=== PATIENT | male | born 1975 | race African-American/Black ===

== ENCOUNTER 2018-08-30 20:04 | Emergency (ER) | payer OTHER ==
[~2018-08-30] VITALS: Ht 172.7 cm; Wt 172.4 kg
[2018-08-30 20:19] VITALS: BP 146/89
[2018-08-30] MEDS ORDERED: Methocarbamol 750mg tab ORAL ONE (20:30)
[2018-08-30] MEDS ORDERED: Ketorolac 30mg Inj IM ONE (20:30)
[2018-08-30] MEDS ORDERED: ROBAXIN-750750 MG PO (20:55)
[2018-08-30] MEDS ORDERED: LIDODERM700 M1 TOPIC (20:55)
[2018-08-30] MEDS ORDERED: IBUPROFEN600 MG ORAL (20:55)
[2018-08-30 21:06] VITALS: BP 146/89
--- NOTE | 2018-08-30 21:56 | Emergency Room Report ---
History of Present Illness General Chief Complaint: Neck Pain Source: Patient Present Illness HPI 43-year-old male presents ED for evaluation. Complaining of left-sided neck pain. Woke up with the pain 2 days ago. States his neck feels stiff. Pain is throbbing, 8 out of 10, nonradiating. Denies headaches or photophobia. Denies blurry vision. Fevers or chills. Other aggravating relieving factors. Denies any other associated symptoms Allergies: Coded Allergies: No Known Allergies (Unverified , 08/30/18) Patient History Past Medical History: HTN Past Surgical History: none Pertinent Family History: none Social History: Denies: smoking, alcohol use, drug use Immunizations: UTD Reviewed Nursing Documentation: PMH: Agreed; PSxH: Agreed Nursing Documentation-PMH Hx Hypertension: Yes Review of Systems All Other Systems: negative except mentioned in HPI Physical Exam Vital Signs Date Time Temp Pulse Resp B/P (MAP) Pulse Ox O2 Delivery O2 Flow Rate FiO2 08/30/18 20:08 98.4 92 18 146/89 96 Room Air Sp02 EP Interpretation: reviewed, normal General Appearance: no apparent distress, alert, GCS 15, non-toxic, obese Head: normocephalic, atraumatic Eyes: bilateral eye normal inspection, bilateral eye PERRL ENT: hearing grossly normal, normal pharynx, no angioedema, normal voice Neck: full range of motion, supple, no meningismus, no bony tend, supple/symm/ no masses, tender lateral Respiratory: chest non-tender, lungs clear, normal breath sounds, speaking full sentences Cardiovascular #1: regular rate, rhythm, no edema Cardiovascular #2: 2+ carotid (R), 2+ carotid (L), 2+ radial (R), 2+ radial (L) , 2+ dorsalis pedis (R), 2+ dorsalis pedis (L) Gastrointestinal: normal bowel sounds, non tender, soft, non-distended, no guarding, no rebound Rectal: deferred Genitourinary: normal inspection, no CVA tenderness Musculoskeletal: back normal, gait/station normal, normal range of motion, non- tender Neurologic: alert, oriented x3, responsive, motor strength/tone normal, sensory intact, speech normal Psychiatric: judgement/insight normal, memory normal, mood/affect normal, no suicidal/homicidal ideation Reflexes: 3+ bicep (R), 3+ bicep (L), 3+ tricep (R), 3+ tricep (L), 3+ knee (R) , 3+ knee (L) Skin: normal color, no rash, warm/dry, well hydrated Lymphatic: no adenopathy Medical Decision Making Diagnostic Impression: Primary Impression: Neck strain Qualified Codes: S16.1XXA - Strain of muscle, fascia and tendon at neck level , initial encounter ER Course Hospital Course 43-year-old male presents ED complaining of left-sided neck pain Differential diagnoses include: neck strain, shoulder strain, dislocation/ fracture Clinical course Patient placed on stretcher. After initial history and physical exam reveals middle-aged male in no acute distress. On exam there is no midline neck tenderness or shoulder tenderness. There is pain over the trapezius. Gayla exam unremarkable. Pain is muscular. No imaging required. I ordered Toradol, Robaxin, Lidoderm in ED. Upon reassessment pain is improved Discussed findings with patient. Safe for discharge close outpatient follow- up. Signs of PMD. We'll provide referrals Diagnosis - neck strain Stable and discharged to home with prescription for Motrin, Robaxin, Lidoderm. Followup with PMD/ortho. Return to ED if symptoms recur or worsen Last Vital Signs Date Time Temp Pulse Resp B/P (MAP) Pulse Ox O2 Delivery O2 Flow Rate FiO2 08/30/18 21:06 98.4 18 146/89 96 Room Air 08/30/18 20:19 78 Status: improved Disposition: HOME, SELF-CARE Condition: Stable Scripts Lidocaine (Lidoderm) 1 Each Adh..patch 1 PATCH TOPIC DAILY, #7 PATCH 0 Refills Patch(es) may remain in place for up to 12 hours in any 24-hour period. Prov: Mo Dudley MD 08/30/18 Methocarbamol* (ROBAXIN-750*) 750 Mg Tablet 750 MG PO TID, #21 TAB 0 Refills Prov: Mo Dudley MD 08/30/18 Ibuprofen* (MOTRIN*) 600 Mg Tablet 600 MG ORAL Q8H PRN for For Pain, #30 TAB 0 Refills Prov: Mo Dudley MD 08/30/18 Referrals: NOT CHOSEN IPA/,REFERRING (PCP) [facility] Open 24 hour /7 days a week by Appointment Only [address] [facility] [address] Patient Instructions: Cervical Strain and Sprain With Rehab[facility] Mo Dudley MD Aug 30, 2018 21:56
== END 2018-08-30 21:07 | disposition home or self-care (01) ==
LOC: EMR 20:20
DX: S16.1XXA Strain of muscle, fascia and tendon at neck level, initial encounter (principal); X58.XXXA Exposure to other specified factors, initial encounter; Y92.9 Unspecified place or not applicable; I10 Essential (primary) hypertension
CPT/HCPCS: 96372; 99283; J1885

== ENCOUNTER 2019-02-09 15:19 | Emergency (ER) | payer OTHER ==
[~2019-02-09] VITALS: Ht 172.7 cm; Wt 185.5 kg
[~2019-02-09 15:19] MED LIST: IBUPROFEN600 MG ORAL; LIDODERM700 M1 TOPIC; ROBAXIN-750750 MG PO
[2019-02-09 15:48] VITALS: BP 148/94
--- NOTE | 2019-02-09 16:12 | Emergency Room Report ---
History of Present Illness General Chief Complaint: Pain Source: Patient, Medical Record Present Illness HPI Patient presents with left-sided flank pain and a discharge the somewhat mucoid and there was blood last night when he urinated. He has had kidney stones in the past and this feels similar to that although spent a long time. He has been told that his prostate is enlarged. He has had intermittent discharges like this in the past. He was once told that this was related to his enlarged prostate and somewhat he also said that it might be related to a kidney stone. He rates the pain 5/10 fairly constant on the left-hand side. He also has a pulling in the right groin when he is straining to urinate. He denies any hernia in the past. There is no testicular pain. 2 days ago he was hit with a fever and joint pain. This improved on its own. He denies any sore throat or upper respiratory symptoms. There is no nausea, vomiting or diarrhea. He does not suspect that there is sex outside of his relationship which is been stable for years. No sore throat, chest pain, palpitations, nausea, vomiting, diarrhea, rectal pain, shortness of breath, rashes, depression, anxiety, visual changes, headache. Allergies: Coded Allergies: No Known Allergies (Unverified , 08/30/18) Patient History Past Medical History: see triage record Social History: Reports: alcohol use; Denies: smoking Social History Narrative Unemployed and lives with the mother of his 12-year-old son Reviewed Nursing Documentation: PMH: Agreed; PSxH: Agreed Nursing Documentation-PMH Hx Hypertension: Yes Review of Systems All Other Systems: negative except mentioned in HPI Physical Exam Vital Signs Date Time Temp Pulse Resp B/P (MAP) Pulse Ox O2 Delivery O2 Flow Rate FiO2 02/09/19 15:48 97.3 84 18 148/94 (112) 95 Room Air Sp02 EP Interpretation: reviewed, normal General Appearance: well appearing, no apparent distress, obese Head: normocephalic Eyes: bilateral eye normal inspection, bilateral eye PERRL, bilateral eye EOMI ENT: moist mucus membranes Neck: supple Respiratory: lungs clear, normal breath sounds Cardiovascular #1: regular rate, rhythm Cardiovascular #2: 2+ radial (R) Gastrointestinal: normal inspection, normal bowel sounds, non tender, no mass, non-distended, overweight Genitourinary: no CVA tenderness, penis normal, scrotum normal Musculoskeletal: back normal, gait/station normal, normal range of motion Neurologic: alert, oriented x3, grossly normal Psychiatric: mood/affect normal Skin: no rash Medical Decision Making Diagnostic Impression: Primary Impression: UTI (urinary tract infection) Qualified Codes: N30.00 - Acute cystitis without hematuria ER Course Patient presents with flank pain and dysuria. Differential includes pyelonephritis, renal stone, Shannen's syndrome, prostatitis, UTI, urethritis amongst others. The patient will be evaluated with labs and urinalysis. Suspicion for sexually transmitted disease is low. An ultrasound is ordered. The patient will receive IV hydration and a dose of Toradol. Urinalysis positive. White count normal. Ultrasound with no hydronephrosis but evidence of bladder wall thickening. Improved with treatment. Rocephin ordered. Discussed with patient need to see a urologist. Most likely he may need to be on Flomax in the future. Patient stable for outpatient observation and treatment. Laboratory Tests Test 02/09/19 16:12 White Blood Count 10.1 K/UL (4.8-10.8) Red Blood Count 5.46 M/UL (4.70-6.10) Hemoglobin 16.0 G/DL (14.2-18.0) Hematocrit 48.5 % (42.0-52.0) Mean Corpuscular Volume 89 FL (80-99) Mean Corpuscular Hemoglobin 29.3 PG (27.0-31.0) Mean Corpuscular Hemoglobin Concent 33.1 G/DL (32.0-36.0) Red Cell Distribution Width 12.0 % (11.6-14.8) Platelet Count 228 K/UL (150-450) Mean Platelet Volume 7.0 FL (6.5-10.1) Neutrophils (%) (Auto) 61.3 % (45.0-75.0) Lymphocytes (%) (Auto) 26.2 % (20.0-45.0) Monocytes (%) (Auto) 9.4 % (1.0-10.0) Eosinophils (%) (Auto) 2.0 % (0.0-3.0) Basophils (%) (Auto) 1.1 % (0.0-2.0) Prothrombin Time 10.0 SEC (9.30-11.50) Prothrombin Time INR 0.9 (0.9-1.1) PTT 31 SEC (23-33) Urine Color Yellow Urine Appearance Very cloudy Urine pH 7 (4.5-8.0) Urine Specific [place] 1.010 (1.005-1.035) Urine Protein 2+ (NEGATIVE) H Urine Glucose (UA) Negative (NEGATIVE) Urine Ketones 1+ (NEGATIVE) H Urine Blood 3+ (NEGATIVE) H Urine Nitrite Negative (NEGATIVE) Urine Bilirubin Negative (NEGATIVE) Urine Urobilinogen 1 MG/DL (0.0-1.0) H Urine Leukocyte Esterase 3+ (NEGATIVE) H Urine RBC 2-4 /HPF (0 - 0) H Urine WBC Tntc /HPF (0 - 0) H Urine Squamous Epithelial Cells Few /LPF (NONE/OCC) Urine Bacteria Many /HPF (NONE) H Sodium Level 140 MMOL/L (136-145) Potassium Level 3.8 MMOL/L (3.5-5.1) Chloride Level 107 MMOL/L (98-107) Carbon Dioxide Level 26 MMOL/L (21-32) Anion Gap 7 mmol/L (5-15) Blood Urea Nitrogen 16 mg/dL (7-18) Creatinine 1.1 MG/DL (0.55-1.30) Estimate Glomerular Filtration Rate > 60 mL/min (>60) Glucose Level 89 MG/DL (74-106) Calcium Level 8.8 MG/DL (8.5-10.1) Total Bilirubin 0.4 MG/DL (0.2-1.0) Aspartate Amino Transferase (AST) 16 U/L (15-37) Alanine Aminotransferase (ALT) 29 U/L (12-78) Alkaline Phosphatase 75 U/L (46-116) Total Protein 8.0 G/DL (6.4-8.2) Albumin 3.3 G/DL (3.4-5.0) L Globulin 4.7 g/dL Albumin/Globulin Ratio 0.7 (1.0-2.7) L Lipase 111 U/L (73-393) Chlamydia trachomatis RNA Pending Neisseria gonorrhoeae RNA Pending CT/MRI/US Diagnostic Results CT/MRI/US Diagnostic Results : Imaging Test Ordered: Renal ultrasound Impression No hydronephrosis, bladder wall thickening Last Vital Signs Date Time Temp Pulse Resp B/P (MAP) Pulse Ox O2 Delivery O2 Flow Rate FiO2 10/5/19 19:00 98.2 72 17 138/82 100 Room Air Status: improved Disposition: HOME, SELF-CARE Condition: Improved Scripts Nitrofurantoin Monohyd/M-Cryst* (MACROBID 100 MG*) 100 Mg Capsule 100 MG ORAL EVERY 12 HOURS, #14 CAP Prov: Reyes Guzman MD 02/09/19 Ibuprofen* (MOTRIN*) 600 Mg Tablet 600 MG ORAL Q6H PRN for For Pain, #20 TAB 0 Refills Prov: Reyes Guzman MD 02/09/19 Referrals: NOT CHOSEN IPA/,REFERRING (PCP) Reyes Guzman MD Feb 09, 2019 16:12
[2019-02-09] MEDS ORDERED: Ketorolac 30mg Inj IV ONE (16:15)
--- NOTE | 2019-02-09 16:23 | NUR ---
ED Nurse Note: pt walked in c/o dysuria and left side flank pain for past month, pt states he has hx BPH but denies taking any medication. pt denies fever, chills, nausea nor vomiting. pt AA&ox4, skin warm and dry, resp even and unlabored on RA. noted urine sample w/ foul odor, dark yellow and cloudy. will follow up with ermd order. pt resting at this time, advised to notify staff if needed further assist. iv started per order and iv fluid started, pain medication was administered per order.
[2019-02-09 16:33] LABS: BASOPHILS % (AUTO) 1.1 % (0.0-2.0); HEMATOCRIT 48.5 % (42.0-52.0); LYMPHOCYTES % (AUTO) 26.2 % (20.0-45.0); MEAN CORPUSCULAR VOLUME 89 FL (80-99); MONOCYTES % (AUTO) 9.4 % (1.0-10.0); NEUTROPHILS % (AUTO) 61.3 % (45.0-75.0); PLATELET COUNT 228 K/UL (150-450); RED BLOOD COUNT 5.46 M/UL (4.70-6.10); WHITE BLOOD COUNT 10.1 K/UL (4.8-10.8)
[2019-02-09 16:39] LABS: APPEARANCE,URINE VERY CLOUDY; BILIRUBIN, URINE NEGATIVE (NEGATIVE); GLUCOSE, URINE (UA) NEGATIVE (NEGATIVE); KETONES,URINE 1+ (NEGATIVE); LEUKOCYTE ESTERASE ,URINE 3+ (NEGATIVE); NITRITE,URINE NEGATIVE (NEGATIVE); PH,URINE 7 (4.5-8.0); PROTEIN,URINE 2+ (NEGATIVE); UROBILINOGEN,URINE 1 MG/DL (0.0-1.0)
[2019-02-09 16:41] LABS: COLOR,URINE YELLOW
[2019-02-09 16:47] LABS: ANION GAP 7 mmol/L (5-15); BLOOD UREA NITROGEN 16 mg/dL (7-18); CALCIUM 8.8 MG/DL (8.5-10.1); CARBON DIOXIDE 26 MMOL/L (21-32); CHLORIDE 107 MMOL/L (98-107); CREATININE 1.1 MG/DL (0.55-1.30); POTASSIUM 3.8 MMOL/L (3.5-5.1); SODIUM 140 MMOL/L (136-145)
[2019-02-09 16:52] LABS: ALANINE AMINOTRANSFERASE 29 U/L (12-78); ALBUMIN 3.3 G/DL (3.4-5.0); ALBUMIN/GLOBULIN RATIO 0.7 (1.0-2.7); ALKALINE PHOSPHATASE 75 U/L (46-116); ASPARTATE AMINO TRANSFERASE 16 U/L (15-37); BILIRUBIN,TOTAL 0.4 MG/DL (0.2-1.0)
[2019-02-09 16:55] LABS: INR 0.9 (0.9-1.1)
[2019-02-09 17:45] VITALS: BP 145/89
--- NOTE | 2019-02-09 18:14 | Diagnostic Imaging Report ---
EXAM: US Retroperitoneal Complete, Renal CLINICAL HISTORY: STONES TECHNIQUE: Real-time ultrasound of the retroperitoneum (complete) with image documentation. COMPARISON: No relevant prior studies available. FINDINGS: Limitations: Body habitus. Aorta: No abdominal aortic aneurysm. Right kidney: Unremarkable. No stones. No solid mass. No hydronephrosis. Left kidney: Unremarkable. No stones. No solid mass. No hydronephrosis. Bladder: Thickening of the underdistended urinary bladder. Other findings: Diffusely increased hepatic echogenicity is suggestive of steatosis. IMPRESSION: No renal calculi or hydronephrosis. Hepatic steatosis.
[2019-02-09] MEDS ORDERED: cefTRIAXone 1 GM in NS 55 ML IVPB ONE (18:30)
[2019-02-09] MEDS ORDERED: IBUPROFEN600 MG ORAL (18:47)
[2019-02-09] MEDS ORDERED: NITROFURANTOIN100 M2 ORAL (18:47)
[2019-02-09 19:00] VITALS: BP 138/82
--- NOTE | 2019-02-09 19:00 | NUR ---
ER DISCHARGE NOTE: Patient is cleared to be discharged per ERMD, pt is aox4, on room air, with stable vital signs. pt was given dc and prescription instructions, pt was able to verbalize understanding, pt id band and iv site removed without complications. pt is able to ambulate with steady gait. pt took all belongings.
== END 2019-02-09 19:00 | disposition home or self-care (01) ==
LOC: EMR 16:07
DX: N30.00 Acute cystitis without hematuria (principal); I10 Essential (primary) hypertension
CPT/HCPCS: 36415; 76770; 80053; 81003; 83690; 85025; 85610; 85730; 87086; 87491; 87590; 96361; 96365; 96375; J0696; J1885; Z7502; 99284

== ENCOUNTER 2020-03-20 09:09 | Emergency (ER) | payer OTHER ==
[~2020-03-20] VITALS: Ht 172.7 cm; Wt 185.1 kg
[~2020-03-20 09:09] MED LIST changes: +NITROFURANTOIN100 M2 ORAL
--- NOTE | 2020-03-20 09:23 | NUR ---
ED Nurse Note: Pt had surgery 03/16. Pt states they repaired kidney tube that was damaged. Pt had f/c placed on 03/16, and states he had pain and hematuria since then. He states he started taking his sisters anitbiotics yesterday "green pill" and it helped. Pt is alert and orientedx4, ambulatory.
[2020-03-20 09:25] VITALS: BP 152/101
--- NOTE | 2020-03-20 09:54 | Emergency Room Report ---
History of Present Illness General Chief Complaint: Male Urogenital Problems Source: Patient Present Illness HPI Patient is a 44-year-old male presents for increased blood in his urine. Prior history of recent urologic surgery. Had 03/16 performed at [facility]. Subsequently noticed some blood in his urine. Had been taking oral antibiotics which she does not know the name of. Took 5 doses of medication twice a day. Persistent pain. Had noticed a decreased blood in his catheter. Patient has a follow-up appointment with his urologist. 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 COVID-19 Screening: Negative COVID-19 COVID-19 Testing Source: nasal Patient History Past Medical History: see triage record Reviewed Nursing Documentation: PMH: Agreed; PSxH: Agreed Nursing Documentation-PMH Past Medical History: No History, Except For Hx Hypertension: Yes Hx Dialysis: No - kidney stones Review of Systems All Other Systems: negative except mentioned in HPI Physical Exam Vital Signs Date Time Temp Pulse Resp B/P (MAP) Pulse Ox O2 Delivery O2 Flow Rate FiO2 03/20/20 09:13 98.4 90 22 158/103 (121) 98 Room Air General Appearance: well appearing, no apparent distress, alert, GCS 15, obese Head: normocephalic, atraumatic ENT: hearing grossly normal, normal voice Neck: full range of motion, supple Respiratory: no respiratory distress, speaking full sentences Cardiovascular #1: normal inspection Gastrointestinal: normal inspection, soft Musculoskeletal: normal inspection, no calf tenderness Neurologic: alert, motor strength/tone normal, salesperson used cars III-XII nml as tested, oriented x3, normal gait Psychiatric: mood/affect normal Skin: no rash Medical Decision Making ER Course Patient presented for postoperative pain. Differential diagnosis include was not limited to urinary tract infection, [place] catheter obstruction, among others. Patient has a benign exam and does not appear to require any imaging or laboratory testing at this time. Last Vital Signs Date Time Temp Pulse Resp B/P (MAP) Pulse Ox O2 Delivery O2 Flow Rate FiO2 03/20/20 09:25 98.4 83 21 152/101 99 Room Air Referrals: NON PHYSICIAN (PCP) Elmer Montoya MD Mar 20, 2020 09:54
[2020-03-20 10:34] LABS: APPEARANCE,URINE SLIGHTLY CLOUDY; BILIRUBIN, URINE NEGATIVE (NEGATIVE); GLUCOSE, URINE (UA) NEGATIVE (NEGATIVE); KETONES,URINE 1+ (NEGATIVE); LEUKOCYTE ESTERASE ,URINE 3+ (NEGATIVE); NITRITE,URINE NEGATIVE (NEGATIVE); PH,URINE 5 (4.5-8.0); PROTEIN,URINE 3+ (NEGATIVE); UROBILINOGEN,URINE 1 MG/DL (0.0-1.0)
[2020-03-20 10:43] LABS: COLOR,URINE YELLOW
[2020-03-20] MEDS ORDERED: CEPHALEXIN500 M1 ORAL (10:50)
[2020-03-20] MEDS ORDERED: PHENAZOPYRIDIN200 MG ORAL (10:50)
[2020-03-20 10:55] VITALS: BP 139/94
--- NOTE | 2020-03-20 10:56 | NUR ---
ER DISCHARGE NOTE: Patient is cleared to be discharged per ERMD, pt is aox4, on room air, with stable vital signs. pt was given dc and prescription instructions, pt was able to verbalize understanding, pt id band removed. pt is able to ambulate with steady gait. pt took all belongings. Pt educated on f/u with uroligist and prescriptions.
== END 2020-03-20 10:57 | disposition home or self-care (01) ==
LOC: EMR 09:25
DX: R31.9 Hematuria, unspecified (principal); G89.18 Other acute postprocedural pain; I10 Essential (primary) hypertension; Z87.442 Personal history of urinary calculi; E66.9 Obesity, unspecified
CPT/HCPCS: 81003; 87086; Z7502; 99283